=== PATIENT | male | born 1960 | race African-American/Black ===

== ENCOUNTER 2019-01-23 09:39 | Emergency (ER) | payer OTHER, SELFPAY ==
[~2019-01-23] VITALS: Ht 167.6 cm; Wt 78.9 kg
--- NOTE | 2019-01-23 09:39 | NUR ---
BIBA from home c/o witnessed seizure x2 today from EtOH WD, last drink 3-4 x24oz beer & meth last night, hx of same, denies SI/HI; PIV & 2mg versed [employer] per EMS; pt changed into gown, AOx4, responds approp to staff but req min redirection; seiz prec, cardiac, NIBP & SpO2 monitors in place.
[2019-01-23] MEDS ORDERED: LORazepam 2 MG/ML, 1ML IVPush ONE ×2 (10:00→11:00)
[2019-01-23 10:32] LABS: BASOPHILS # (AUTO) 0.02 x10^3/uL (0-0.1); BASOPHILS % (AUTO) 0 % (0-1); EOSINOPHILS # (AUTO) 0.01 x10^3/uL (0-0.4); EOSINOPHILS % (AUTO) 0 % (1-7); LYMPHOCYTES % (AUTO) 22 % (22-44); MD NO; MEAN CORPUSCULAR HEMOGLOBIN 31.1 pg (27.5-34.5); MEAN CORPUSCULAR HGB CONC 33.5 g/dL (33.2-36.2); MEAN CORPUSCULAR VOLUME 92.8 fL (81-97); MEAN PLATELET VOLUME 7.8 fL (7.4-10.4); MONOCYTES % (AUTO) 6 % (2-9); NEUTROPHILS # (AUTO) 4.84 x10^3/uL (1.8-6.8); NEUTROPHILS % (AUTO) 72 % (42-75); PLATELET COUNT 264 x10^3/uL (130-400); RED BLOOD COUNT 4.73 x10^6/uL (4.38-5.82); RED CELL DISTRIBUTION WIDTH 13.5 % (9.4-14.8)
[2019-01-23 10:41] LABS: ALBUMIN 3.9 g/dL (3.4-5.0); ANION GAP 11 mmol/L (5-15); CALCIUM 8.7 mg/dL (8.5-10.1); CHLORIDE 102 mmol/L (98-107)
[2019-01-23 10:44] LABS: ALANINE AMINOTRANSFERASE 92 U/L (12-78); ALKALINE PHOSPHATASE 91 U/L (45-117); BILIRUBIN,TOTAL 0.7 mg/dL (0.2-1.0); CREATININE 1.12 mg/dL (0.7-1.3); TOTAL PROTEIN 8.6 g/dL (6.4-8.2)
[2019-01-23] MEDS ORDERED: LORazepam 2 MG/ML, 1ML ONE (10:47)
[2019-01-23] MEDS ORDERED: LORazepam 2 MG/ML, 1ML IVPush STA (10:54)
--- NOTE | 2019-01-23 10:55 | NUR ---
pt upright on gurney awake & calm, responds approp to staff, reports "hearing voices telling me to stop using or else I'll burn your ass up."- PA/ERP aware, NAD, comfort measures provided, call light within reach.
[2019-01-23] MEDS ORDERED: SODIUM CHLORIDE 0.9% 1,000ML IVBOLUS ONE (11:00)
[2019-01-23] MEDS ORDERED: PLEASE ENTER ALLERGIES MC SCH (11:30)
[2019-01-23 11:32] LABS: AMPHETAMINE SCREEN, URINE Positive (Negative); BARBITURATE SCREEN, URINE Negative (Negative); BENZODIAZEPINE SCREEN, URINE Positive (Negative); CANNABINOID SCREEN, URINE Negative (Negative); COCAINE SCREEN, URINE Negative (Negative); METHADONE SCREEN, URINE Negative (Negative); OPIATE SCREEN, URINE Negative (Negative)
[2019-01-23 12:01] VITALS: BP 135/75
--- NOTE | 2019-01-23 12:02 | NUR ---
pt remains upright on gurney with eyes closed, responds approp to staff, denies AH after 2nd dose ativan, NAD, comfort measures provided, call light within reach.
--- NOTE | 2019-01-23 12:36 | NUR ---
Patient given bus pass, discharge instructions and Rx, they have confirmed that they understand the instructions. Patient ambulatory with steady gait.
== END 2019-01-23 12:37 | disposition home or self-care (01) ==
LOC: ED 12:33
DX: G40.319 Generalized idiopathic epilepsy and epileptic syndromes, intractable, without status epilepticus (principal); F15.151 Other stimulant abuse with stimulant-induced psychotic disorder with hallucinations; F10.129 Alcohol abuse with intoxication, unspecified
CPT/HCPCS: 36415; 80053; 80307; 85025; 93005; 96374; 96376; 99284; J2060; J7030